=== PATIENT | female | born 1975 | race Caucasian/White ===

== ENCOUNTER 2017-01-01 08:58 | Emergency (ER) | payer OTHER ==
[2017-01-01 09:01] VITALS: TEMP 98.9; BMI 29.2
--- NOTE | 2017-01-01 09:19 | PDOC ---
History of Present Illness - General History Source: Patient Exam Limitations: No Limitations <Nicolas Limassica - Last Filed: 01/01/17 10:27> <Weston Guardado - Last Filed: 01/01/17 11:11> - General Chief Complaint: Chest Pain Stated Complaint: CHEST PAIN Time Seen by Provider: 01/01/17 09:01 - History of Present Illness Initial Comments: 01/01/17 10:05 The patient is a 41 year old female, with no significant past medical history, who presents today via ambulance complaining of left sided chest pain, lightheadedness, and nausea. The patient states that she had a sudden onset of chest pain while sitting at her work desk. The chest pain was sharp in quality, lasted for 1 to 2 seconds, then resolved. She reports a second episode of sharp chest pain that recurred 5 minutes later also lasting for a few seconds before resolving. The chest pain was accompanied by lightheadedness, nausea, and SOB. After taking a baby aspirin, the chest pain and symptoms resolved. At this time she is not experiencing chest pain. She notes that she regularly goes to gym and has never experienced any chest pain or SOB on exertion. No familial history of cardiac disease or blood clots. Denies palpitations. Denies cough. Denies fever, chills, vomiting. social: denies smoking, illicit drug use, etoh abuse Allergies: None reported Family HX: No hx of cardiac disease/blood clots. Does not have PCP. (Nisha Lima) Past History <Nisha Lima - Last Filed: 01/01/17 10:27> - Past Medical History Other medical history: denies - Psycho/Social/Smoking Cessation Hx Anxiety: No Suicidal Ideation: No Smoking History: Former smoker Have you smoked in the past 12 months: No Information on smoking cessation initiated: No Hx Alcohol Use: No Drug/Substance Use Hx: No Substance Use Type: None <Weston Guardado - Last Filed: 01/01/17 11:11> - Past Medical History Allergies/Adverse Reactions: Allergies Allergy/AdvReac Type Severity Reaction Status Date / Time No Known Allergies Allergy Verified 01/01/17 08:59 Home Medications: Ambulatory Orders NK [No Known Home Medication] 01/01/17 Review of Systems - Review of Systems Able to Perform ROS?: Yes <Nisha Lima - Last Filed: 01/01/17 10:27> <Geo,Weston - Last Filed: 01/01/17 11:11> - Review of Systems Comments:: 01/01/17 10:06 CONSTITUTIONAL: No reported: Fever, Chills, Diaphoresis, Generalized Weakness, Malaise, Loss of Appetite HEENT: No reported: Rhinorrhea, Nasal Congestion, Throat Pain, Throat Swelling, Difficulty Swallowing, Mouth Swelling, Ear Pain, Eye Pain, Visual Changes CARDIOVASCULAR: Reported: left sided chest pain, lightheadedness, No reported: Syncope, Palpitations, Irregular Heart Rate, Peripheral Edema RESPIRATORY: Reported: SOB No reported: Cough, SOB with Exertion, Orthopnea, Wheezing, Stridor, Hemoptysis GASTROINTESTINAL: No reported: Abdominal pain, Abdominal Distension, Nausea, Vomiting, Diarrhea, Constipation, Melena, Hematochezia GENITOURINARY: No reported: Dysuria, Frequency, Urgency, Hesitancy, Flank Pain, Genital Pain MUSCULOSKELETAL: No reported: Myalgia, Arthralgia, Joint Swelling, Back pain, Neck Pain SKIN: No reported: Rash, Itching, Pallor HEMEATOLOGIC/IMMUNOLOGIC: No reported: Easy Bleeding, Easy Bruising, Lymphadenopathy, Frequent infections ENDOCRINE: No reported: Unexplained Weight Gain, Unexplained Weight Loss, Heat Intolerance , Cold Intolerance NEUROLOGIC: No reported: Headache, Focal Weakness, Paresthesias, Vertigo, Lightheadedness, Unsteady Gait, Seizure, Mental Status Changes, Incontinence PSYCHIATRIC: No reported: Anxiety, Depression (Nisha Lima) *Physical Exam <Nisha Lima - Last Filed: 01/01/17 10:27> <GeoWeston soto - Last Filed: 01/01/17 11:11> - Vital Signs Last Vital Signs Temp Pulse Resp BP Pulse Ox 98.9 F 78 20 122/70 98 01/01/17 08:59 01/01/17 09:01 01/01/17 08:59 01/01/17 08:59 01/01/17 09:01 - Physical Exam Comments: 01/01/17 10:06 GENERAL: The patient is awake, alert, and fully oriented, Nontoxic - in no acute distress. HEAD: Normocephalic, atraumatic. EYES: extraocular movements intact, sclera anicteric, conjunctiva clear. ENT: Normal voice, Moist mucous membranes. NECK: Normal range of motion, supple LUNGS: Breath sounds equal, clear to auscultation bilaterally. No wheezes, no rhonchi, no rales. HEART: Regular rate and rhythm, without murmur, rub or gallop. ABDOMEN: Soft, nontender, normoactive bowel sounds. No guarding, no rebound.No CVA tenderness EXTREMITIES: Normal range of motion, no edema. No clubbing or cyanosis. No cords, erythema, or tenderness. NEUROLOGICAL: No facial assymetry, Normal speech, PSYCH: Normal mood, normal affect. SKIN: Warm, Dry, normal turgor. (Nisha Lima) Heart Score/ECG Review <Nisha Lima - Last Filed: 01/01/17 10:27> <Weston Guardado - Last Filed: 01/01/17 11:11> - ECG Impressions Comment:: 01/01/17 10:29 Twelve-lead EKG was performed and reviewed by me. There is normal sinus rhythm with a normal rate. Rate of 60 The axis is normal. The intervals are normal. There is normal R wave progression There are no ST or T wave abnormalities. Impression: Normal twelve-lead EKG (Weston Guardado) ED Treatment Course - LABORATORY CBC & Chemistry Diagram: 01/01/17 08:39 01/01/17 08:39 <Nisha Lima - Last Filed: 01/01/17 10:27> - LABORATORY CBC & Chemistry Diagram: 01/01/17 08:39 01/01/17 08:39 <Weston Guardado - Last Filed: 01/01/17 11:11> - ADDITIONAL ORDERS Additional order review: Laboratory Results 01/01/17 01/01/17 01/01/17 09:40 09:40 09:11 INR D-Dimer < 200 Sodium Potassium Chloride Carbon Dioxide Anion Gap BUN Creatinine Creat Clearance w eGFR Random Glucose Calcium Total Bilirubin AST ALT Alkaline Phosphatase Total Protein Albumin Urine Color Ltyellow Urine Appearance Clear Urine pH 5.0 Ur Specific [place] 1.014 Urine Protein Negative Urine Glucose (UA) Negative Urine Ketones Negative Urine Blood 1+ H Urine Nitrite Negative Urine Bilirubin Negative Urine Urobilinogen Negative Ur Leukocyte Esterase Trace H Urine RBC 1 Urine WBC 1 Ur Epithelial Cells Rare Urine Mucus Rare Urine HCG, Qual Negative 01/01/17 01/01/17 08:39 08:39 INR 1.12 D-Dimer Sodium 139 Potassium 4.0 Chloride 105 Carbon Dioxide 27 Anion Gap 7 L BUN 13 Creatinine 0.6 Creat Clearance w eGFR > 60 Random Glucose 96 Calcium 8.8 Total Bilirubin 0.4 AST 18 ALT 20 Alkaline Phosphatase 100 Total Protein 7.6 Albumin 3.4 Urine Color Urine Appearance Urine pH Ur Specific [place] Urine Protein Urine Glucose (UA) Urine Ketones Urine Blood Urine Nitrite Urine Bilirubin Urine Urobilinogen Ur Leukocyte Esterase Urine RBC Urine WBC Ur Epithelial Cells Urine Mucus Urine HCG, Qual 01/01/17 08:39 RBC 4.52 MCV 91.1 MCHC 33.3 RDW 13.4 MPV 10.5 Neutrophils % 69.9 Lymphocytes % 22.5 Monocytes % 6.0 Eosinophils % 1.2 Basophils % 0.4 - RADIOLOGY Radiology Studies Ordered: Category Date Time Status CHEST X-RAY PORTABLE* [RAD] Stat Radiology 01/01/17 09:11 Completed Radiograph Interpretation: 01/01/17 10:27 EXAM#: TYPE/EXAM: RESULT: [id number] RAD/CHEST X-RAY PORTABLE* Chest pain Portable chest x ray, AP sitting A frontal view of the chest was obtained. The cardiac silhouette is within normal limits in size. The lung is clear. Mediastinum and visualized osseous structures appear intact . Impression: Unremarkable examination without evidence of acute lung disease. Reported By: Cecy Buitrago MD 01/01/17 1020 (Nisha Lima) Medical Decision Making <Nisha Lima - Last Filed: 01/01/17 10:27> <Weston Guardado - Last Filed: 01/01/17 11:11> - Medical Decision Making 01/01/17 09:12 41y F no pmhx presents with chest pain, that was suden on set, sharp in nature lasting for seconds, x 2, associated with sob, dizziness, nausea, that resolved after she took a baby asprin. no recent exterional complaints. currently asypmtmatic, vitals normal. exam unremarkable atypical for acs ?PE - will send screening ddimer will obtain ekg to [facility] for acs will place on security monitor will reassess A portion of this note was documented by scribe services under my direction. I have reviewed the details of the note, within reason, and agree with the documentation with the following case summary and management plan written by me 01/01/17 11:09 The patient's blood work was reviewed it is negative the patient's chest xray is negative for acute disease pt feeling asypmtomatic. no events on ardiac monitor will d/c with pmd fu return precautions were discussed I discussed the physical exam findings, ancillary test results and final diagnoses with the patient. I answered all of the patient's questions. The patient was satisfied with the care received and felt comfortable with the discharge plan and treatment plan. The patient will call their primary care physician within 24 hours to arrange follow-up and will return to the Emergency Department with any new, persistent or worsening symptoms. (Weston Guardado) *DC/Admit/Observation/Transfer <Nisha Lima - Last Filed: 01/01/17 10:27> - Discharge Dispostion Admit: No <Weston Guardado - Last Filed: 01/01/17 11:11> Diagnosis at time of Disposition: Atypical chest pain - Discharge Dispostion Disposition: HOME Condition at time of disposition: Improved - Patient Instructions Printed Discharge Instructions: DI for Atypical Chest Pain Additional Instructions: Return to the emergency department immediately with ANY new, persistent or worsening symptoms. You MUST call and follow up with your doctor tomorrow for further evaluation of your symptoms. Results were discussed with you. Please make sure your doctor reviews the results of your emergency evaluation. If you had any xrays during your visit, it was read preliminarily by myself, a Radiologist will review it and if there are any additional findings we will call you. Print Language: ARMENIAN - Attestations Scribe Attestion: 01/01/17 10:06 Documentation prepared by UNA Orozco, acting as lpn medical assistant for Weston Guardado MD. (Nisha Lima)
[2017-01-01 09:39] LABS: BASOPHIL 0.4 % (0-2.0); EOSINOPHIL 1.2 % (0-4.5); MCH 30.4 pg (25.7-33.7); MCHC 33.3 g/dl (32.0-36.0); MEAN CELL VOLUME 91.1 fl (80-96); MEAN PLT VOLUME 10.5 fl (7.5-11.1); NEUTROPHILS 69.9 % (42.8-82.8); PLATELET COUNT 146 K/MM3 (134-434); RDW 13.4 % (11.6-15.6); WHITE BLOOD COUNT 5.7 K/mm3 (4.0-10.0)
[2017-01-01 09:49] LABS: URINE APPEARANCE CLEAR; URINE BILIRUBIN NEGATIVE (NEGATIVE); URINE COLOR LTYELLOW; URINE GLUCOSE (UA) NEGATIVE (NEGATIVE); URINE KETONE NEGATIVE (NEGATIVE); URINE NITRITE NEGATIVE (NEGATIVE); URINE PROTEIN NEGATIVE (NEGATIVE); URINE UROBILINOGEN NEGATIVE E.U./dl (0.2-1.0)
[2017-01-01 09:50] LABS: URINE BLOOD 1+ (NEGATIVE); URINE LEUK ESTERASE TRACE (NEGATIVE)
[2017-01-01 09:56] LABS: URINE MUCUS RARE; URINE RBC 1 /hpf (0-3); URINE WBC 1 /hpf (3-5)
[2017-01-01 10:04] LABS: ALBUMIN 3.4 g/dl (3.4-5.0); ALK PHOS 100 U/L (45-117); ANION GAP 7 (8-16); BILIRUBIN,TOTAL 0.4 mg/dL (0.2-1.0); CALCIUM 8.8 mg/dL (8.5-10.1); CO2 27 mmol/L (21-32); CREATININE 0.6 mg/dL (0.55-1.02); GLUCOSE,RANDOM 96 mg/dL (74-106); SGPT/ALT 20 U/L (12-78); TOT PROT 7.6 g/dl (6.4-8.2)
[2017-01-01 10:06] LABS: SGOT/AST 18 U/L (15-37)
[2017-01-01 10:21] LABS: INR 1.12 (0.82-1.09); PROTHROMBIN TIME (PATIENT) 12.3 SEC (9.98-11.88)
--- NOTE | 2017-01-01 10:59 | EKG ---
Test Reason : Blood Pressure : / mmHG Vent. Rate : 060 BPM Atrial Rate : 060 BPM P-R Int : 132 ms QRS Dur : 076 ms QT Int : 402 ms P-R-T Axes : 063 044 051 degrees QTc Int : 402 ms NORMAL SINUS RHYTHM WITH SINUS ARRHYTHMIA NORMAL ECG NO PREVIOUS ECGS AVAILABLE Confirmed by MEÑO HERNANDEZ MD ([id number]) on 01/01/2017 10:59:02 AM Referred By: Confirmed By:MEÑO HERNANDEZ MD
[2017-01-01 11:20] VITALS: BP 117/72; PULSE 72
== END 2017-01-01 11:20 | disposition home or self-care (01) ==
LOC: JER 08:58
DX: R07.89 Other chest pain (principal)
CPT/HCPCS: 36415; 71010-TC; 80053; 81003; 81015; 84703; 85025; 85379; 85610; 93005; 93010; 99284-25